=== PATIENT | male | born 1980 | race Caucasian/White ===

== ENCOUNTER 2020-07-04 09:58 | Day surgery (SDC) | payer OTHER ==
[~2020-07-04] VITALS: Ht 165.1 cm; Wt 97.3 kg
[~2020-07-04 09:58] MED LIST: ALPR.5; METPHE10 PO; SUCR1 PO
[2020-07-04] MEDS ORDERED: Prevacid Soluta30 MG (10:12)
--- NOTE | 2020-07-04 15:03 | NUR ---
07/04/20 [facility] 2MG VERSEND IVPB WAS USED DURING EXAMINATION PER DR. PIERCE.
== END 2020-07-04 11:48 | disposition home or self-care (01) ==
LOC: ORSCSDS 09:58
PROVIDERS: Student in an Organized Health Care Education/Training Program
PROC: 0DB98ZX Excision of Duodenum, Via Natural or Artificial Opening Endoscopic, Diagnostic (ICD-10-PCS; principal; 2020-07-04 11:15)
PROC: 0DB68ZX Excision of Stomach, Via Natural or Artificial Opening Endoscopic, Diagnostic (ICD-10-PCS; principal; 2020-07-04 11:15)
PROC: 0DB58ZX Excision of Esophagus, Via Natural or Artificial Opening Endoscopic, Diagnostic (ICD-10-PCS; principal; 2020-07-04 11:15)
DX: R10.13 Epigastric pain (principal); D13.0 Benign neoplasm of esophagus; F98.8 Other specified behavioral and emotional disorders with onset usually occurring in childhood and adolescence; Z79.899 Other long term (current) drug therapy
CPT/HCPCS: 88305; 88342; 88364; 88365; J2250; J2704; J7120